=== PATIENT | male | born 1945 | race Caucasian/White ===

== ENCOUNTER 2016-06-03 10:10 | Inpatient (IN) | payer OTHER, BC ==
[~2016-06-03] VITALS: Ht 180.3 cm; Wt 85.2 kg
[~2016-06-03 10:10] MED LIST: CIPRO500 MG PO
[2016-06-03 10:48] LABS: HEMATOCRIT 30.8 % (38.0-50.0); MCH 30.7 PG (29.0-34.0); MCHC 35.1 G/DL (30.0-36.0); MCV 87.5 FL (86-99); PLATELET COUNT 198 K/uL (156-360); RBC DIS.WIDTH-CV 12.2 % (11.8-14.6); RBC DIS.WIDTH-SD 39.2 % (39-53); RED BLOOD COUNT 3.52 M/uL (4.00-5.50); WHITE BLOOD COUNT 14.4 K/uL (4.1-10.2)
[2016-06-03 11:01] LABS: CHLORIDE 95 mEq/L (99-109); POTASSIUM 4.6 mEq/L (3.7-5.4); SODIUM 126 mEq/L (136-147)
[2016-06-03 11:03] LABS: GLUCOSE 152 mg/dL (70-99)
[2016-06-03 11:04] LABS: ANION GAP 8 MEQ/L (2-14)
[2016-06-03 11:07] LABS: GFR ESTIMATE (CALCULATED) > 59 mL/min/
[2016-06-03 11:08] LABS: UREA NITROGEN (BUN) 25 mg/dL (9-23)
[2016-06-03 11:17] LABS: TROP-I INTERPRETATION NEGATIVE; TROPONIN-I 0.02 ng/mL (0.0-0.30)
[2016-06-03 12:39] LABS: ADD MIUA? YES; BILIRUBIN NEGATIVE; BLOOD LARGE; COLOR BLOODY ((YELLOW)); GLUCOSE (STRIP) NEGATIVE; KETONES NEGATIVE; LEUKOCYTES TRACE; NITRITE NEGATIVE; PH, URINE 7.5 (5-8); PROTEIN (STRIP) >2000; SPECIFIC GRAVITY 1.015 (1.000-1.030); UROBILINOGEN 0.2 MG/DL (0.2-1.0)
[2016-06-03 12:44] LABS: RED BLOOD CELLS TNTC /HPF (0-5); UCUL ADDED? YES
[2016-06-03] MEDS ORDERED: ZESTRIL40 MG PO (14:12)
[2016-06-03] MEDS ORDERED: ESCITALOPRAM OX10 MG PO (14:13)
[2016-06-03] MEDS ORDERED: SANCTURA XR60 MG PO (14:13)
[2016-06-03] MEDS ORDERED: NORVASC10 MG PO (14:13)
[2016-06-03] MEDS ORDERED: ZOCOR20 MG PO (14:13)
[2016-06-03] MEDS ORDERED: DIPROSONE 0.05%15 G1 TP (14:14)
[2016-06-03] MEDS ORDERED: KENALOG,ARISTOC80 GM TP (14:14)
[2016-06-03] MEDS ORDERED: KLONOPIN0.5 M1 PO (14:15)
[2016-06-03] MEDS ORDERED: CLARITIN10 M3 PO (14:16)
[2016-06-03 15:21] LABS: HEMATOCRIT 28.2 % (38.0-50.0); MCH 30.6 PG (29.0-34.0); MCHC 34.8 G/DL (30.0-36.0); MCV 88.1 FL (86-99); MEAN PLAT.VOLUME 10.3 uM^3 (9.0-12.4); PLATELET COUNT 205 K/uL (156-360); RBC DIS.WIDTH-CV 12.2 % (11.8-14.6); RBC DIS.WIDTH-SD 39.4 % (39-53); WHITE BLOOD COUNT 15.8 K/uL (4.1-10.2)
[2016-06-03 15:33] LABS: INTER. NORMALIZED RATIO 1.1; PROTHROMBIN TIME 10.8 (9.2-11.2); PTT 24.3 (25-32)
[2016-06-03 15:36] LABS: TOTAL BILIRUBIN 0.7 mg/dL (0.0-1.0)
[2016-06-03 15:38] LABS: ALKALINE PHOSPHATASE 58 IU/L (3-129)
[2016-06-03 15:40] LABS: DIRECT BILIRUBIN 0.3 mg/dL (0.0-0.3)
[2016-06-03 15:41] LABS: LIPASE 20 U/L (1.0-51.0)
[2016-06-03 18:14] VITALS: BP 121/56
[2016-06-03 20:14] LABS: MCV 89.7 FL (86-99)
[2016-06-03 21:53] LABS: MAGNESIUM 1.5 mg/dL (1.3-2.7)
[2016-06-03 21:54] LABS: INTER. NORMALIZED RATIO 1.1
[2016-06-03 22:30] VITALS: BP 117/55
[2016-06-04] VITALS (14 sets, daily range): BP systolic 92–112; BP diastolic 48–63
[2016-06-04 06:56] LABS: HEMATOCRIT 23.2 % (38.0-50.0)
[2016-06-04 07:18] LABS: ANION GAP 7 MEQ/L (2-14); CHLORIDE 102 MEQ/L (99-109); GFR ESTIMATE (CALCULATED) > 59 mL/min/; POTASSIUM 4.2 MEQ/L (3.7-5.4); SAMPLE HEMOLYSIS CHECK 0; SAMPLE ICTERIC CHECK 0; SAMPLE LIPEMIA CHECK 0; UREA NITROGEN (BUN) 16 mg/dL (9-23)
[2016-06-04 07:27] LABS: GLUCOSE 97 mg/dL (70-99); SODIUM 135 MEQ/L (136-147)
[2016-06-04 10:42] LABS: HEMATOCRIT 23.3 % (38.0-50.0); MCV 91.4 FL (86-99)
[2016-06-04 16:11] LABS: HEMATOCRIT 25.7 % (38.0-50.0); MCV 92.1 FL (86-99)
[2016-06-04 20:34] LABS: HEMATOCRIT 29.7 % (38.0-50.0)
[2016-06-04 21:21] LABS: EOSINOPHIL (%) 0 % (0-5); IMMATURE GRANULOCYTE (%) 0.8 % (0.0-0.7); IMMATURE GRANULOCYTE COUNT 0.1 K/uL; INSTRUMENT ABS NEUTROPHIL CT 14.4 K/uL; LYMPHOCYTE COUNT 1.2 K/uL (1.0-2.8); MCH 30.5 PG (29.0-34.0); MCHC 31.4 G/DL (30.0-36.0); MEAN PLAT.VOLUME 11.3 uM^3 (9.0-12.4); MONOCYTE (%) 9.3 % (3-12); MONOCYTE COUNT 1.6 K/uL (0-0.8); NEUTROPHIL (%) 83.1 % (45-76); NEUTROPHIL COUNT 14.4 K/uL (1.8-6.4); PLATELET COUNT 172 K/uL (156-360); RBC DIS.WIDTH-CV 13.3 % (11.8-14.6); RBC DIS.WIDTH-SD 46.9 % (39-53); WHITE BLOOD COUNT 17.3 K/uL (4.1-10.2)
[2016-06-04 21:48] LABS: RED BLOOD COUNT 2.49 M/uL (4.00-5.50)
[2016-06-05 02:51] VITALS: BP 105/52
[2016-06-05 06:33] LABS: EOSINOPHIL (%) 0.3 % (0-5); HEMATOCRIT 27.2 % (38.0-50.0); IMMATURE GRANULOCYTE (%) 0.4 % (0.0-0.7); INSTRUMENT ABS NEUTROPHIL CT 8.2 K/uL; LYMPHOCYTE COUNT 1.9 K/uL (1.0-2.8); MCHC 33.1 G/DL (30.0-36.0); MCV 90.7 FL (86-99); MEAN PLAT.VOLUME 10.9 uM^3 (9.0-12.4); NEUTROPHIL COUNT 8.2 K/uL (1.8-6.4); PLATELET COUNT 133 K/uL (156-360); RBC DIS.WIDTH-SD 46.2 % (39-53); WHITE BLOOD COUNT 11.2 K/uL (4.1-10.2)
[2016-06-05 06:42] LABS: ANION GAP 7 MEQ/L (2-14); GFR ESTIMATE (CALCULATED) > 59 mL/min/; GLUCOSE 100 mg/dL (70-99); MAGNESIUM 1.9 mg/dl (1.3-2.7); POTASSIUM 4.2 MEQ/L (3.7-5.4); SAMPLE HEMOLYSIS CHECK 0; SAMPLE ICTERIC CHECK 0; SAMPLE LIPEMIA CHECK 0; UREA NITROGEN (BUN) 10 mg/dL (9-23)
[2016-06-05 06:44] LABS: SODIUM 146 MEQ/L (136-147)
[2016-06-05 06:45] LABS: CHLORIDE 113 MEQ/L (99-109)
[2016-06-05 07:48] VITALS: BP 126/74
[2016-06-05 11:19] VITALS: BP 111/60
[2016-06-05 15:32] LABS: ANION GAP 5 MEQ/L (2-14); CHLORIDE 109 MEQ/L (99-109); GFR ESTIMATE (CALCULATED) > 59 mL/min/; GLUCOSE 125 mg/dL (70-99); POTASSIUM 3.5 MEQ/L (3.7-5.4); SAMPLE HEMOLYSIS CHECK 0; SAMPLE ICTERIC CHECK 0; SAMPLE LIPEMIA CHECK 0; SODIUM 142 MEQ/L (136-147); UREA NITROGEN (BUN) 8 mg/dL (9-23)
[2016-06-05 16:45] VITALS: BP 134/64
[2016-06-05 20:00] VITALS: BP 134/65
[2016-06-05 21:14] LABS: HEMATOCRIT 27.6 % (38.0-50.0); MCV 90.8 FL (86-99)
[2016-06-06 00:58] VITALS: BP 126/67
[2016-06-06 03:46] VITALS: BP 135/74
[2016-06-06 08:37] LABS: HEMATOCRIT 28.5 % (38.0-50.0); MCV 90.5 FL (86-99)
[2016-06-06 08:53] LABS: ANION GAP 8 MEQ/L (2-14); CHLORIDE 110 MEQ/L (99-109); POTASSIUM 3.6 MEQ/L (3.7-5.4); SAMPLE HEMOLYSIS CHECK 0; SAMPLE ICTERIC CHECK 0; SAMPLE LIPEMIA CHECK 0; SODIUM 144 MEQ/L (136-147)
[2016-06-06 08:59] LABS: GFR ESTIMATE (CALCULATED) > 59 mL/min/; GLUCOSE 112 mg/dL (70-99); UREA NITROGEN (BUN) 6 mg/dL (9-23)
[2016-06-06 13:38] VITALS: BP 136/67
[2016-06-06 18:28] VITALS: BP 157/74
[2016-06-06 19:18] VITALS: BP 141/71
[2016-06-06 23:56] VITALS: BP 123/63
[2016-06-07] VITALS (7 sets, daily range): BP systolic 111–1418; BP diastolic 60–75
[2016-06-07 06:34] LABS: EOSINOPHIL (%) 0 % (0-5); HEMATOCRIT 28.2 % (38.0-50.0); IMMATURE GRANULOCYTE (%) 0.4 % (0.0-0.7); LYMPHOCYTE COUNT 1.2 K/uL (1.0-2.8); MCH 29.8 PG (29.0-34.0); MCV 90.4 FL (86-99); MEAN PLAT.VOLUME 10.3 uM^3 (9.0-12.4); MONOCYTE (%) 5.9 % (3-12); MONOCYTE COUNT 0.6 K/uL (0-0.8); NEUTROPHIL (%) 81.1 % (45-76); RBC DIS.WIDTH-CV 13.2 % (11.8-14.6); RBC DIS.WIDTH-SD 43.5 % (39-53); RED BLOOD COUNT 3.12 M/uL (4.00-5.50); WHITE BLOOD COUNT 9.8 K/uL (4.1-10.2)
[2016-06-07 06:35] LABS: PLATELET COUNT 197 K/uL (156-360)
[2016-06-07 06:42] LABS: ANION GAP 8 MEQ/L (2-14); CHLORIDE 108 MEQ/L (99-109); GFR ESTIMATE (CALCULATED) > 59 mL/min/; GLUCOSE 107 mg/dL (70-99); SAMPLE HEMOLYSIS CHECK 0; SAMPLE ICTERIC CHECK 0; SAMPLE LIPEMIA CHECK 0; SODIUM 143 MEQ/L (136-147); UREA NITROGEN (BUN) 8 mg/dL (9-23)
[2016-06-07 06:43] LABS: POTASSIUM 4.8 MEQ/L (3.7-5.4)
[2016-06-08 03:40] VITALS: BP 130/71
[2016-06-08 06:17] LABS: EOSINOPHIL (%) 2.9 % (0-5); EOSINOPHIL COUNT 0.2 K/uL (0-0.3); HEMATOCRIT 26.9 % (38.0-50.0); IMMATURE GRANULOCYTE (%) 0.3 % (0.0-0.7); INSTRUMENT ABS NEUTROPHIL CT 4.9 K/uL; LYMPHOCYTE COUNT 1.8 K/uL (1.0-2.8); MCH 29.6 PG (29.0-34.0); MCHC 32.3 G/DL (30.0-36.0); MCV 91.5 FL (86-99); MEAN PLAT.VOLUME 10.5 uM^3 (9.0-12.4); MONOCYTE (%) 8.4 % (3-12); MONOCYTE COUNT 0.6 K/uL (0-0.8); NEUTROPHIL (%) 64.7 % (45-76); NEUTROPHIL COUNT 4.9 K/uL (1.8-6.4); PLATELET COUNT 201 K/uL (156-360); RBC DIS.WIDTH-CV 13.3 % (11.8-14.6); RBC DIS.WIDTH-SD 44.2 % (39-53); RED BLOOD COUNT 2.94 M/uL (4.00-5.50); WHITE BLOOD COUNT 7.5 K/uL (4.1-10.2)
[2016-06-08 06:43] LABS: ANION GAP 7 MEQ/L (2-14); CHLORIDE 108 MEQ/L (99-109); GFR ESTIMATE (CALCULATED) > 59 mL/min/; GLUCOSE 91 mg/dL (70-99); MAGNESIUM 2.1 mg/dl (1.3-2.7); POTASSIUM 4.1 MEQ/L (3.7-5.4); SAMPLE HEMOLYSIS CHECK 0; SAMPLE ICTERIC CHECK 0; SAMPLE LIPEMIA CHECK 0; SODIUM 143 MEQ/L (136-147); UREA NITROGEN (BUN) 9 mg/dL (9-23)
[2016-06-08 08:16] VITALS: BP 131/63
[2016-06-08 12:05] VITALS: BP 134/77
[2016-06-08 17:06] VITALS: BP 147/70
[2016-06-08 20:58] LABS: HEMATOCRIT 27.5 % (38.0-50.0); MCV 91.1 FL (86-99)
[2016-06-08 22:44] VITALS: BP 124/69
[2016-06-09 03:38] VITALS: BP 134/69
[2016-06-09 07:16] VITALS: BP 141/68
[2016-06-09] MEDS ORDERED: AMOX TR-K CLV1 EAC3 PO (08:48)
[2016-06-09] MEDS ORDERED: PANTOPRAZOLE SO40 MG PO (08:48)
[2016-06-09 11:30] VITALS: BP 146/82
== END 2016-06-09 14:27 | disposition home or self-care (01) | DRG 853 ==
LOC: EME 10:10 → 5EAST 13:27 → EDOF 13:27 → 5EAST 17:03
PROVIDERS: Emergency Medicine; Hospitalist; Internal Medicine; Internal Medicine Gastroenterology
PROC: 0DB58ZX Excision of Esophagus, Via Natural or Artificial Opening Endoscopic, Diagnostic (ICD-10-PCS; principal; 2016-06-04)
PROC: 0VT08ZZ Resection of Prostate, Via Natural or Artificial Opening Endoscopic (ICD-10-PCS; 2016-06-06)
DX: A41.9 Sepsis, unspecified organism (principal); K22.11 Ulcer of esophagus with bleeding; J18.9 Pneumonia, unspecified organism; G93.40 Encephalopathy, unspecified; K27.4 Chronic or unspecified peptic ulcer, site unspecified, with hemorrhage; K92.0 Hematemesis; E87.1 Hypo-osmolality and hyponatremia; D62 Acute posthemorrhagic anemia; R31.9 Hematuria, unspecified; I10 Essential (primary) hypertension; N32.3 Diverticulum of bladder; K44.9 Diaphragmatic hernia without obstruction or gangrene; E78.5 Hyperlipidemia, unspecified; K21.0 Gastro-esophageal reflux disease with esophagitis
CPT/HCPCS: 70450; 71020; 71250; 74176; 80048; 80048 91; 80076; 81003; 82272; 83605; 83690; 83735; 83880; 84100; 84484; 85014; 85018; 85025; 85027; 85610; 85730; 86850; 86900; 86901; 86920; 87040; 87070; 87086; 87205; 88305; 88341 TC; 88342 TC; 93005; 99281; 99285; C9113; J0330; J0456; J0696; J1100; J1364; J1650; J2250; J2270; J2405; J2710; J3010; J7030; J7050; J7120; P9016